=== PATIENT | female | born 1935 | race Caucasian/White ===

== ENCOUNTER 2023-07-02 15:06 | Observation (INO) ==
[2023-07-02] MEDS ORDERED: Iodixanol (CONTRAST) 320 MG/ML 100 ML SDV IV ONE (15:15)
[2023-07-02 15:39] LABS: ABS Basophils 0.1 10^3/uL (0.0-0.1); ABS Eosinophils 0.1 10^3/uL (0.0-0.5); ABS Lymphocytes 1.9 10^3/uL (1.0-4.8); ABS Monocytes 0.7 10^3/uL (0.0-0.9); ABS Neutrophils 3.9 10^3/uL (1.5-7.6); Eosinophil % 1.4 %; Hematocrit 39.5 % (35-45); Hemoglobin 13.4 g/dL (11.5-14.3); Lymphocyte % 28.9 %; Mean Corpuscular Hemoglobin 29.9 pg (27-33); Mean Corpuscular Hgb Conc 33.8 g/dL (31-36); Mean Corpuscular Volume 88.3 fL (80-97); Mean Platelet Volume 7.1 fL (7.5-11.2); Nucleated Red Blood Cells % 0.1 %/100WBC (0.0-0.8); Platelet Count 241 10^3/uL (150-450); Red Blood Count 4.47 10^6/uL (3.63-4.92); Red Cell Distribution Width 13.3 % (12-17); White Blood Count 6.7 10^3/uL (3.8-11.8)
[2023-07-02 15:55] LABS: Activated Partial Thrombo Time 33.1 seconds (26.0-38.0); INR 0.99 (0.83-1.13)
[2023-07-02 15:58] LABS: Albumin 4.1 g/dL (3.2-5.2); Albumin/Globulin Ratio 1.6 (1-3); Calcium 9.3 mg/dL (8.6-10.3); Creatinine, Serum 0.71 mg/dL (0.51-0.95); Direct Bilirubin 0.1 mg/dL (0.03-0.18); Globulin 2.5 g/dL (2-4); HDL Cholesterol 49.3 mg/dL; Indirect Bilirubin 0.3 mg/dL (0.3-1.0); Potassium 3.9 mmol/L (3.5-5.0); Total Bilirubin 0.4 mg/dL (0.2-1.0); Total Protein 6.6 g/dL (6.4-8.9); eGFR CKD-EPI 81.7 (>60)
[2023-07-02 17:47] LABS: Urine Appearance Cloudy; Urine Bilirubin Negative (Negative); Urine Blood 2+ (Negative); Urine Color Yellow; Urine Glucose Negative (Negative); Urine Ketones Negative (Negative); Urine Nitrite Positive (Negative); Urine Protein Negative (Negative); Urine Urobilinogen Negative (Negative)
[2023-07-02] MEDS: Enoxaparin 40 MG/0.4 ML SYR SUBCUT SCH (17:53)
[2023-07-02 18:35] LABS: Urine Bacteria 1+ (Absent); Urine Red Blood Cell 1+(3-5/hpf) (Absent); Urine Squamous Epithelial Cell Present (Absent); Urine White Blood Cell 2+(11-20/hpf) (Absent)
[2023-07-02] MEDS: cefTRIAXone 1 gm/50 mL D5W 1 GM/50 ML BAG IV SCH (19:58)
[2023-07-02] MEDS: Aspirin EC 81 mg TAB.EC (enteric coated) PO SCH (23:39)
[2023-07-03 06:01] LABS: Hematocrit 39.3 % (35-45); Hemoglobin 13.2 g/dL (11.5-14.3); Mean Corpuscular Hemoglobin 29.4 pg (27-33); Mean Corpuscular Hgb Conc 33.6 g/dL (31-36); Mean Corpuscular Volume 87.6 fL (80-97); Mean Platelet Volume 6.9 fL (7.5-11.2); Platelet Count 228 10^3/uL (150-450); Red Blood Count 4.49 10^6/uL (3.63-4.92); Red Cell Distribution Width 13.1 % (12-17); White Blood Count 6.9 10^3/uL (3.8-11.8)
[2023-07-03 06:30] LABS: Calcium 9.1 mg/dL (8.6-10.3); Creatinine, Serum 0.6 mg/dL (0.51-0.95); Phosphorus 3.1 mg/dL (2.5-5.0); eGFR CKD-EPI 86.3 (>60)
[2023-07-03] MEDS: Aspirin EC 81 mg TAB.EC (enteric coated) PO SCH (07:57)
[2023-07-03] MEDS ORDERED: Aspirin EC 81 mg TAB.EC (enteric coated) PO SCH (09:00)
[2023-07-03] MEDS: Enoxaparin 40 MG/0.4 ML SYR SUBCUT SCH (17:40)
[2023-07-03] MEDS: cefTRIAXone 1 gm/50 mL D5W 1 GM/50 ML BAG IV SCH (20:05)
[2023-07-04] MEDS: Aspirin EC 81 mg TAB.EC (enteric coated) PO SCH (08:49)
[2023-07-04 10:08] VITALS: BP 123/66
[2023-07-04] MEDS ORDERED: cefTRIAXone 1 gm/50 mL D5W 1 GM/50 ML BAG IV ONE (12:11)
== END 2023-07-04 14:30 | disposition home or self-care (01) ==
LOC: EDHOLD 15:06 → ED 15:06 → SUATTDRO 17:20 → MEDTELE 07-03 00:19
PROVIDERS: ADMIT Internal Medicine; ATTEND Internal Medicine

== ENCOUNTER 2024-04-21 11:36 | Observation (INO) ==
[2024-04-21] MEDS ORDERED: Iodixanol 320 (CONTRAST) 100 ML SDV IV ONE (12:10)
[2024-04-21 12:25] LABS: ABS Eosinophils 0.1 10^3/uL (0.0-0.5); ABS Lymphocytes 1.8 10^3/uL (1.0-4.8); ABS Monocytes 0.8 10^3/uL (0.0-0.9); ABS Nucleated RBC 0.01 10^3/ul; Eosinophil % 1.4 %; Hematocrit 40.6 % (35-45); Hemoglobin 13.7 g/dL (11.5-14.3); Lymphocyte % 31.7 %; Mean Corpuscular Hemoglobin 29.8 pg (27-33); Mean Corpuscular Hgb Conc 33.7 g/dL (31-36); Mean Corpuscular Volume 88.4 fL (80-97); Mean Platelet Volume 7.7 fL (7.5-11.2); Nucleated Red Blood Cells % 0.1 %/100WBC (0.0-0.8); Platelet Count 266 10^3/uL (150-450); Red Blood Count 4.59 10^6/uL (3.63-4.92); Red Cell Distribution Width 13.3 % (12-17); White Blood Count 5.7 10^3/uL (3.8-11.8)
[2024-04-21 12:40] LABS: Activated Partial Thrombo Time 34.3 seconds (26.0-38.0)
[2024-04-21 13:01] LABS: Albumin 3.7 g/dL (3.2-5.2); Albumin/Globulin Ratio 2.3 (1-3); Calcium 8.5 mg/dL (8.6-10.3); Creatinine, Serum 0.7 mg/dL (0.51-0.95); Direct Bilirubin 0.1 mg/dL (0.03-0.18); Globulin 1.6 g/dL (2-4); HDL Cholesterol 41.8 mg/dL; Indirect Bilirubin 0.6 mg/dL (0.3-1.0); Potassium 4.4 mmol/L (3.5-5.0); Total Bilirubin 0.7 mg/dL (0.2-1.0); Total Protein 5.3 g/dL (6.4-8.9); eGFR CKD-EPI 82.6 (>60)
[2024-04-21] MEDS ORDERED: Sulfur Hexaflouride MICROSPHR 25 MG VIAL IV PRN (14:30)
[2024-04-21] MEDS ORDERED: NF: Estradiol VAG CM (NF) 1 APPLIC TUBE VAGINAL SCH (16:00)
[2024-04-21] MEDS: Enoxaparin 40 MG/0.4 ML SYR SUBCUT SCH (20:49)
[2024-04-22 06:50] LABS: Calcium 9.2 mg/dL (8.6-10.3); Creatinine, Serum 0.62 mg/dL (0.51-0.95); Potassium 4.2 mmol/L (3.5-5.0); eGFR CKD-EPI 85.1 (>60)
[2024-04-22] MEDS: Cholecalciferol (VIT D3) 1,000 unit TAB PO SCH (08:11)
[2024-04-22 08:51] VITALS: BP 117/80
== END 2024-04-22 13:29 | disposition home or self-care (01) ==
LOC: EDHOLD 11:36 → ED 11:36 → SUATTDRO 14:31 → MED 15:07 → MEDTELE 15:37
PROVIDERS: ADMIT Internal Medicine; ATTEND Internal Medicine